=== PATIENT | female | born 2000 | race Caucasian/White ===

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

== ENCOUNTER 2024-12-30 06:06 | Observation (INO) | payer SELFPAY ==
[~2024-12-30] VITALS: Ht 167.6 cm; Wt 81.7 kg
[2024-12-30 07:15] LABS: BASOPHILS ABSOLUTE AUTO 0.04 K/mm3 (0.00-0.23); BASOPHILS PERCENT AUTO 0 % (0-2); EOSINOPHILS PERCENT AUTO 0 % (0-6); Hematocrit 44.9 % (33.0-51.0); Hemoglobin 15.7 g/dL (11.5-16.0); IMMATURE GRAN ABSOLUTE AUTO 0.05 K/mm3 (0.00-0.10); IMMATURE GRAN PERCENT AUTO 0 % (0-1); LYMPHOCYTES PERCENT AUTO 21 % (21-46); MONOCYTES ABSOLUTE AUTO 1.01 K/mm3 (0.16-1.47); MONOCYTES PERCENT AUTO 8 % (4-13); Mean Corpuscular HGB 30.3 pg (26.0-34.0); Mean Corpuscular Volume 87 fL (80-100); Mean Platelet Volume 9.3 fL (9.1-12.4); NEUTROPHILS ABSOLUTE AUTO 9.34 K/mm3 (1.96-9.15); NEUTROPHILS PERCENT AUTO 71 % (41-73); Platelet Count 387 K/mm3 (150-400); RDW Coefficient Variation 13.2 % (11.7-14.2); RDW Standard Deviation 41.4 fL (35.1-46.3); Red Blood Cell Count 5.19 M/mm3 (3.80-5.20); White Blood Cell Count 13.14 K/mm3 (4.00-11.30)
[2024-12-30 07:48] LABS: Ethanol (Alcohol), Blood, Med 4 mg/dL; Free Thyroxine 1.71 ng/dL (0.70-1.60); Salicylate <1.7 mg/dL (2.8-20.0)
[2024-12-30 07:53] LABS: Alanine Aminotransfer (ALT/SGP 22 U/L (12-78); Albumin, Blood 4.7 g/dL (3.4-5.0); Albumin/Globulin Ratio 1.4 (0.8-1.8); Alk Phos 82 U/L (50-136); Anion Gap 11 mmol/L (3-11); Aspartate Aminotrans (AST/SGOT 21 U/L (12-37); Bilirubin, Total 1.3 mg/dL (0.1-1.0); Blood Urea Nitrogen 11 mg/dL (8-24); Bun/Creatinine Ratio 15.9 (12.0-20.0); CO2, Blood 22 mmol/L (21-32); Calcium, Blood 9.2 mg/dL (8.5-10.1); Chloride, Blood 105 mmol/L (98-108); Creatinine, Blood 0.69 mg/dL (0.40-1.00); Globulin, Blood 3.4 g/dL (2.2-4.0); Glomerular Filtration Rate 125 (60-); Glucose, Blood 94 mg/dL (70-99); Potassium, Blood 3.3 mmol/L (3.5-5.5); Sodium, Blood 135 mmol/L (136-145); Total Protein, Blood 8.1 g/dL (6.4-8.2)
[2024-12-30 07:54] LABS: Acetaminophen, Random <2.0 ug/mL (10.0-30.0)
[2024-12-30] MEDS ORDERED: Potassium Chloride 20 MEQ TabCR PO ONE (09:40)
[2024-12-30] MEDS ORDERED: Magnesium Oxide 400 MG Tab PO ONE (09:40)
[2024-12-30 10:37] LABS: Source, Urine Clean Catch
[2024-12-30 10:59] LABS: Appearance, Urine Clear (Clear); Bilirubin, Urine Neg (Neg); Blood, Urine Neg (Neg); Color, Urine Yellow (P-Yellow); Glucose Qualitative, Urine Neg (Neg); Ketones, Urine 4+ (Neg); Leukocyte Esterase, Urine Neg (Neg); Nitrite, Urine Neg (Neg); Protein, Urine 2+ (Neg); Urobilinogen, Urine 1+ (Normal)
[2024-12-30 11:12] LABS: Bacteria Many /hpf; Squamous Epithelial Cells Many /hpf (Few)
[2024-12-30 11:13] LABS: Calcium Oxalate Crystals Few /hpf; Red Blood Cells, Urine 0-2 /hpf (0-2); White Blood Cells, Urine 0-2 /hpf (0-5)
[2024-12-30 11:14] LABS: U Amphetamine Screen Not Detected; U Barbituate Screen Not Detected; U Benzodiazapine Screen DETECTED; U Buprenorphine Screen Not Detected; U Cannabinoids Screen DETECTED; U Cocaine Screen Not Detected; U Methadone Screen Not Detected; U Methamphetamine Screen Not Detected; U Opiates Screen Not Detected; U Oxycodone Screen Not Detected; U Phencyclidine Screen Not Detected
[2024-12-30 16:00] VITALS: BP 165/88
== END 2024-12-30 16:42 | disposition other institution (70) ==
LOC: ER 06:06 → EOR 06:07
PROVIDERS: ADMIT Emergency Medicine
DX: F29 Unspecified psychosis not due to a substance or known physiological condition (principal); F22 Delusional disorders; E87.6 Hypokalemia; E80.6 Other disorders of bilirubin metabolism; Z81.8 Family history of other mental and behavioral disorders
CPT/HCPCS: 36415; 80053; 80320; 81001; 81025; 84439; 84443; 85025; 99285; A9270; G0378; G0480

== ENCOUNTER 2024-12-30 15:19 | Inpatient (IN) | payer BC ==
[~2024-12-30] VITALS: Ht 167.6 cm; Wt 96.0 kg
[2024-12-30] MEDS ORDERED: Ondansetron 4 MG SoluTab MM PRN (17:15)
[2024-12-30] MEDS ORDERED: Calcium Carbonate 500 MG Tab Chew PO PRN (17:15)
[2024-12-30] MEDS ORDERED: Acetaminophen 325 MG TABLET PO PRN (17:15)
[2024-12-30] MEDS ORDERED: Polyethylene Glycol 3350 17 gm PO PRN (17:15)
[2024-12-30] MEDS ORDERED: OLANZapine ODT 10 MG Tab MM PRN (17:15)
[2024-12-30] MEDS ORDERED: DiphenhydrAMINE HCl 50 MG/ML 1ML Vial IM PRN ×2 (17:15→17:25)
[2024-12-30] MEDS ORDERED: Melatonin 3 MG Tab PO PRN (17:15)
[2024-12-30] MEDS ORDERED: Ibuprofen 600 MG Tab PO PRN (17:15)
[2024-12-30] MEDS ORDERED: HydrOXYzine Pamoate 50 MG Cap PO PRN (17:15)
[2024-12-30] MEDS ORDERED: TraZODone HCl 50 MG Tab PO PRN (17:15)
[2024-12-30] MEDS ORDERED: Aluminum Hydroxide 320MG/5ML 473 ML PO PRN (17:15)
[2024-12-30 17:21] VITALS: BP 147/116
[2024-12-30] MEDS ORDERED: Haloperidol Lactate Inj. 5 MG/ML Injection IM PRN (17:25)
[2024-12-30] MEDS ORDERED: LORazepam 2 MG/ML 1ML Injection IM PRN (17:25)
[2024-12-30] MEDS ORDERED: LORazepam 1 MG Tab PO PRN (17:25)
[2024-12-30] MEDS ORDERED: Haloperidol 5 MG Tab PO PRN (17:25)
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
--- NOTE | 2024-12-30 18:48 | NUR ---
PT HAS NOSE RING IN PLACE ON HER RIGHT NARE FOR THE DAY SHIFT. PRESENT IN PLACE AT THIS TIME OF SHIFT CHANGE.
[2024-12-30 20:03] VITALS: BP 149/116
[2024-12-31] MEDS ORDERED: DiphenhydrAMINE HCl 50 MG Cap PO PRN ×2 (04:30→07:25)
--- NOTE | 2024-12-31 05:09 | NUR ---
SHIFT SUMMARY PT IN HALLWAY AT START OF SHIFT. NOSE RING TO RIGHT NARES IN PLACE AND INTACT. SHE HAS DISORGANIZED THOUGHTS, AND SEEMS TO HAVE DIFFICULTY MAKE DECISIONS. SHE DENIES ANY THOUGHTS OF SELF HARM BUT DOES NOT ANSWER WHEN ASKED IF SHE WAS HAVING ANY HALLUCINATIONS. SHE APPEARS TO RESPOND TO INTERANL STIMULI AND IS SLOW TO RESPOND TO QUESTIONS. SHE STATES HER MOOD IS "READING INTO THINGS, [facility] PT HAD EVENING SNACK. SHE STATED SHE HASN'T SLEPT AND WAS COMPLIANT WITH TAKING MELATONIN AND TRAZODONE. PT NOTED TO BE FIDGETY AND REPORTED FEELING ANXIOUS, MASS SCORE OF 4 AND WAS COMPLIANT WITH TAKING PRN ZYPREXA AROUND 2029. PT WENT TO HER ROOM AROUND 2044, WAS RESTING QUIETLY IN BED AND APPEARED TO FALL ASLEEP AROUND 0. AT APPROXIMATELY 0330, PT WAS AWAKE, STATES SHE WAS FEELING ANXIOUS, MASS SCORE OF 3. RECEIVED PRN VISTARIL. PT HAS BEEN UNABLE TO GO BACK TO SLEEP, HAD THIS RN REMOVE ALL WATER AND TOILETRIES FROM HER ROOM. PT PACING IN HALLWAY, ANXIOUS. SAT IN SENSORY ROOM FOR SHORT TIME. ATTEMPTED TO GIVE ORAL B52, BUT PT REFUSED. PT IS CURRENTLY IN HALLWAY TALKING WITH RN, TEARFUL AT TIMES TALKING ABOUT HER FEELINGS APPEARS TO BE DE-ESCALTING AT THIS TIME. WILL CONTINUE TO MONITOR Q15 MINUTES PER UNIT PROTOCOL/PT SAFETY.
[2024-12-31] MEDS ORDERED: Multivitamins 1 Tab PO SCH (09:00)
[2024-12-31] MEDS ORDERED: Ziprasidone HCL 20 MG Cap PO SCH (11:50)
[2024-12-31] MEDS ORDERED: LORazepam 1 MG Tab PO ONE (17:05)
--- NOTE | 2024-12-31 18:21 | NUR ---
SHIFT SUMMARY PT AxOx2 SELF AND PLACE WITH INTERMITTENT CONFUSION AND DELUSION OF REFERENCE. PT HAS BEEN MOSTLY COOPERATIVE WITH CARE WHEN SHE IS ABLE, BUT HAS REQUIRED FREQUENT REDIRECTION TO FOLLOW UNIT RULES, SCHEDULE AND BASIC MANNERS AROUND PEERS. PT WAS RESISTANT TO TAKE MEDICATIONS AND EAT MEALS AT TIMES, BUT SHE DID EVENTUALLY FOLLOW TREATMENT PLAN AFTER REPEATED REASSURANCE AND REDIRECTION. PT'S UNPREDICTABLE BEHAVIORS INCLUDED OCCASIONAL STOMPING IN HALLS, TANGENTIAL AND LOOSE ASSOCIATIVE SPEECH, LURKING BY UNIT EXITS, YANKING ON DOOR HANDLES, REPEATEDLY TELLING STAFF SHE WAS LEAVING, ARGUING WITH HER VISITOR (RANDALL) TO THE POINT THAT HE HAD TO END THE VISIT EARLY AND STANDING TOO CLOSELY TO STAFF/PEERS. PT ALSO DISPLAYED CLEAR THINKING ON AND OFF T/O THE DAY INCLUDING ABILITY TO ATTEND AND PARTICIPATE IN GROUP, ENGAGING IN SHORT APPROPRIATE CONVERSATIONS AND ENGAGING IN FREE CRAFTING/ART WITH PEERS. PT WAS STARTED ON GEODON 40MG BID THIS SHIFT, WHICH SHE TOOK WITHOUT DIFFICULTY. PT IS CURRENTLY SITTING IN GROUP ROOM, COLORING, APPEARS RELAXED AT THIS TIME. DENIES ANY NEEDS.
[2024-12-31 19:59] VITALS: BP 123/79
--- NOTE | 2024-12-31 22:34 | NUR ---
PT IN BED QT THE START OF SHIFT. WENT IN AND TALKED TO HER THE BEST I COULD. SHE DIDN'T VERBALIZE ANY CONCERNS, ONLY THING MENTIONED WAS :THE WATER. WHEN ASKING HER TO SIP THE WATER WITH HER MEDS. SHW WAS ABLE TO THAT. SHE THEN GOT OUT OF THE BED WITH HER EYES CLOSED AND STARTED TO WALK AND HAD TO CATCH HERSELF. ESCORTED TO THE RESTROOM INCASE SHE WANTED TO NO, SHE TURNED AWAY FROM IT AND WENT BACK TO BED . COVED HER UP WITH BLANKETS AND WILL CONTINUE TO MONITOR.
--- NOTE | 2025-01-01 04:20 | NUR ---
SHIFT SUMMARY: PT WAS ASLEEP AT THE BEGINNING OF SHIFT. ONLY GOTTON UP ONE TIME AND WAS SLEEPY AND NEEDED HELP BACK TO BED. GIVEN MEDS AND PT WENT BACK TO SLEEP. HAS SLEPT ALL NIGHT. WHEN TRYING TO INTERVIEWING HER WHEN ASSISTED BACK TO BED,THE ONLY THING THAT SHE SAID SOMETHING ABOUT WATERING DOW AND WAS TIRED. DOOR LEFT OPEN AND BATHROOM LIGHT ON TO HELP FOR SAFETY. PT HAS SLEPT THE WHOLE SHIFT. WILL CONTINUE TO MONITOR FOR SAFETY AND WELLNESS.
--- NOTE | 2025-01-01 09:00 | NUR ---
PT OBSERVED NAKED IN THE BATHROOM SHOWER PACING. HER SPEECH IS TANGENTAL. SHE DECLINED TO GET IN A SHOWER OR GET DRESSED. SHE DID NOT DISPLAY AGGRESIVE BEHAVIOR BUT COULD NOT ANSWER QUESTIONS APPROPRIATLY. SHE APPEARS TO HAVE SOME THOUGHT BLOCKING WITH SIGNICANT DELAY IN RESPONSE IF ANY. SHE DECLINE MORNING MEDS AND ORAL BENADRYL ADIVAN, HALODOL AFTER SEVERAL ATTEMPTS WITH ORAL MEDS INJECTABLE GIVEN. PT TOLERATED WELL. SHE REPORTS THAT GOD AND HER AUNT SHEA ARE TALKING TO HER.
--- NOTE | 2025-01-01 10:02 | NUR ---
PT AGREEABLE TO CLOTHES. SHE IS DRESSED AND IS IN THE SENSORY ROOM WITH A BOOK.
--- NOTE | 2025-01-01 13:13 | NUR ---
PT UP TO DINNING ROOM FOR SNACK. PT REFUSING TO LEAVE. SHE IS EMOLTIONALY LABILE. SHE REFUSED TO TALK OR INTERACT WITH STAFF. AFTER VERBAL COACHING SHE LEFT DINNING ROOM AT THAT TIME SHE WENT TO SENSORY ROOM AND BEGAN CRYING LOUDLY. SHE MENTIONS BEING A CHILD AND BEING EXPOSED TO INAPPROPRIATE ADULT SEXUAL ACTIVITY. SHE NAMED SEVERAL ADULTS BUT ALSO THOUGHT THIS RN WAS THERE. THIS RN USED THERAPUTIC LISTENING AND OFFERED A ORAL ZYPREXA, PT AGREED AND IS NOW SLEEPING
--- NOTE | 2025-01-01 14:29 | NUR ---
PT APPEARS TO BE SLEEPING IN THE SENSORY ROOM. SHE IS BEING OBSERVED AT LEAST Q 15 MINUTES PER UNIT PROTOCOL.
[2025-01-01] MEDS ORDERED: Ziprasidone HCL 20 MG Cap PO SCH (21:00)
--- NOTE | 2025-01-01 21:50 | NUR ---
Patient given IM B52 after refusing HS medication and having increasing anxiety, paranoia and mild agitation. unable to answer questions with more than a yes or no repeated several times. Eye contact is poor as patient just stares straight ahead when spoken to. Will monitor every 15 minutes for safety and comfort.
[2025-01-01] MEDS ORDERED: Ziprasidone Mesylate 20 MG / Vial IM PRN (23:50)
--- NOTE | 2025-01-02 00:48 | NUR ---
IM GEODON GIVEN AT 0020. PATIENT STILL QUIETLY PACING HALLS 30 MINUTES LATER.
--- NOTE | 2025-01-02 04:50 | NUR ---
PATIENT PACING HALLS AFTER WAKING FROM NAP IN THE SENSORY ROOM. UNABLE TO FOLLOW COMMANDS OR ANSWER SIMPLE QUESTIONS. gAZE STRAIGHT AHEAD OR TO THE SIDE, BUT NEVER TOWARDS THE PERSON ADDRESSING HER. OCCASIONAL ONE WORD ANSWERS FOR A BRIEF FEW MINUTES AROUND 1999, ALL SINGLE SYLLABLE (EX.NO NO NO) REFUSED HS GEODON, AND BEGAN TO GET AFITATED AFTER THIS RN TRIED TO GENTLY TALK HER INTO IT. (SEE NURSES NOTES) B52 GIVEN AT 2140 WITH LITTLE RESULT. PATIENT STILL AGITATED AND PARANOID. AT 0020, 20MG IM GEODON GIVEN PER NEW ORDER FROM DR SY. AT APPROXIMATELY 0130, PATIENT WHO REFUSED TO GO INTO HER ROOM FELL ASLEEP IN THE SENSORY ROOM. SLEEP HOURS SO FAR TONIGHT 3.5 HOURS. WILL CONTINUE EVERY 15 MINUTE MONITORING FOR SAFETY AND COMFORT.
[2025-01-02] MEDS ORDERED: Ziprasidone HCL 20 MG Cap PO SCH (09:00)
--- NOTE | 2025-01-02 09:26 | NUR ---
ASSUMED PT CARE @ 0700. PT IS AWAKE AND ALERT TO PERSON AND PLACE. SHE WAS ABLE TO SHOWER WITH ASSIST WITH DRYING AND GETTING DRESSED. SHE LET THIS RN BRUSH HER HAIR. SHE IS ABLE TO ANSWER SIMPLE QUESTIONS. THERE IS STILL DELAY. SHE DECLINED AM MEDS AFTER SEVERAL ATTEMPTS AT COACHING AND EDUCATION ABOUT MEDICATIONS AND MENTAL HEALTH DX IM SHEEBA GIVEN. PT TOLERATED WELL. PT ATE BREAKFAST IN THE DINNING ROOM AND IS NOW WATCHING TV WITH PEERS.
--- NOTE | 2025-01-02 11:13 | NUR ---
PT IN HALLWAY ATTEMPTING TO REMOVE TOP AND ATTEMPTING TO ENTER OTHER PATIENTS ROOM. PT ABLE TO BE REDIRECTED TEMPORARILY THEN BACK TO BEHAVIOR. THIS RN ATTEMPTED SEVERAL TIMES TO ENCOURAGE PT TO TAKE PRN ZYPREXA. PT DENIED. PT REFUSES ALL ORAL MEDICATION. SHE REFUSES EYE CONTACT AND TO SPEAK WHEN EDUCATING ON BENIFIT OF MEDICATIONS. PRN BENADRYL, ATIVAN, AND HALODOL GIVEN PER MASS SCORE OF 10. PT TOLERATED WELL. SHE IS NOW WALKING HALLWAY WITH STAFF. WILL CONTINUE POC
[2025-01-02] MEDS ORDERED: OLANZapine 10 MG Vial IM PRN (12:00)
--- NOTE | 2025-01-02 16:15 | NUR ---
SHIFT SUMMARY PT HAS REMAINED CALM AND DIRECTABLE AFTER IM MEDICATION. SPEECH IS STILL LIMITED BUT SHE IS COMPLETING SIMPLE SENTENCES AND ABLE TO ANSWER SIMPLE QUESTIONS. THERE IS STILL SIGNIFICANT DELAY, AT TIME SHE WILL NOT MAKE EYE CONTACT OR ANSWER QUESTIONS. SHE HAS BEEN ABLE COLOR FOR SHORT AMOUNTS OF TIME. SHE IS NOT ATTEMPTING TO REMOVE CLOTHES OR GO INTO PEERS ROOM. SHE HAD WHAT APPEARED TO BE A GOOD VISIT WITH BF AND BROTHER. SHEEBA BLOOM AND MARQUIS ORDERED. SHE IS UNABLE TO ANSWER QUESTIONS REGARDING SI, AVH. SHE HAS BEEN UP FOR MEALS. WILL CONTINUE POC.
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
[2025-01-02] MEDS ORDERED: OLANZapine ODT 10 MG Tab PO SCH (21:00)
--- NOTE | 2025-01-02 22:12 | NUR ---
pATIENT RECEIVED A b52 SHORTLY BEFORE SHIFT CHABGE AND HAS BEEN SLEEPING SINCE. wILL CONTINUE VERY CLOSELY MONITORING AT LEAST EVERY 15 MINUTES FOR SAFETY AND COMFORT
--- NOTE | 2025-01-03 04:05 | NUR ---
Patient has slept all night so far. Respirations even and unlabored. Sleep time thus far is nine hours. Will continue close monitoring at least every 15 minutes for comfort and safety.
--- NOTE | 2025-01-03 09:11 | NUR ---
IMPORTANT REFERRAL INFORMATION Early Assessment and Support [place] (EASA) referral sent to Jena Carter LCSW at [facility] via secure email and fax. EASA program serves young people ages 18-26 who have had their first psychotic break
[2025-01-03] MEDS ORDERED: RisperiDONE 1 MG Tab PO ONE (10:00)
[2025-01-03 10:49] VITALS: BP 148/105
[2025-01-03] MEDS ORDERED: LORazepam 2 MG/ML 1ML Injection IM PRN (13:00)
[2025-01-03] MEDS ORDERED: LORazepam 2 MG Tab PO PRN (13:00)
--- NOTE | 2025-01-03 17:15 | NUR ---
SHIFT SUMMARY PT ALERT AND ORIENTED TO SELF, UNIT, SURROUNDINGS. PT DENIES SI, HI, AND AVTH (APPEARS TO BE RESPONDING TO INTERNAL STIMULI). T/O DAY PT DISPLAYED PARANOID DELUSIONS AND TANGENTIAL THINKING. BELIEVES THAT FEMALE STAFF IS "AUNT SHEA" OR "SAADIA" AND STATES THAT "THEY NEED TO LEAVE". PT ALSO ATTEMPTED TO GO INTO 601 STATING "SHERRI IS IN THERE". PT AT THIS TIME IS DIFFICULT TO REDIRECT. PT ALSO RELUCTANT TO TAKE PO MEDS, BUT GIVING EDUCATION ON MEDICATIONS AND THERAPEUTIC COMMUNICATIONS APPEARS EFFECTIVE AT GETTING PATIENT TO TAKE PO MEDS. DID NOT PARTICIPATE IN [place] TODAY. ATE MINIMALLY TODAY (SEE PROCESS INTERVENTION). PT VISITED W/ BOYFRIEND SHERRI TODAY.
[2025-01-03 19:39] VITALS: BP 141/102
[2025-01-03] MEDS ORDERED: RisperiDONE 1 MG Tab PO SCH (21:00)
--- NOTE | 2025-01-03 21:40 | NUR ---
Patient refused PO ativan at 1939 as well as 2100 Risperdol. She pushed staff aside in the dining room at snack time, and pulled out a lot of food for the patients (twice). Attempt made to give IM Ativan not safe, so called security for stand by so shot could be given. Patient then tolerated well and fell asleep approximately 45 minutes to an hour later. will continue close monitoring every 15 minutes for safety and comfort.
--- NOTE | 2025-01-03 23:13 | NUR ---
Patient continues to sleep (restlessly). Breathing regular and unlabored. will continue close monitoring
--- NOTE | 2025-01-04 04:06 | NUR ---
Patient began the night sitting in the day room watching a movie with her peers. She was very guarded with any staff that came into the room, expecially when this RN attempted to give her an oral Ativan. NO NO NO NO was all she would say, and then turn back to the movie. At snack time, she pushed staff away from the fridge and started passing out snacks to the patients. Security was called when she refused her Risperadol and still wouldn't accept the oral ativan. With gentle assistance and the presence of security, she accepted the injection around 2129. Patient to this point has been sleeping in her bed. She was very paranoid of one of the security guards telling him to get out, that he was already and he needed to quit coming back. She inferred that we were trying to kill her with the meds we were giving her, and had done so several times already. Will continue close observation every 15 minutes or more frequently for comfort and patient safety
[2025-01-04 08:28] VITALS: BP 134/91
--- NOTE | 2025-01-04 17:37 | NUR ---
SHIFT SUMMARY PT AxOx2-3 WITH INTERMITTENT DELUSIONAL AND CONFUSED THINKING. PT DOES NOT PARTICIPATE IN NURSING ASSESSMENT. FOR EXAMPLE, SHE WILL NOT ANSWER SI/HI QUESTIONS. WHEN ASKED ABOUT HER MOOD AND WHETHER SHE HAD ANY THOUGHTS OF SELF HARM, PT REPLIES "DON'T TALK TO ME. YOU NEED TO LEAVE. YOU KNOW WHAT YOU DID." PT'S BEHAVIOR WAXES AND WANES FROM IRRITABLE AND RESTLESS TO CALM AND COOPERATIVE. SHE HAS BEEN ATTENDING MOST [facility] GROUP THERAPIES, BUT SHE HAS STRUGGLED WITH MED COMPLIANCE. PT HAS BEEN REQUIRING MUCH REASSURANCE BEFORE BEING WILLING TO TAKE ANY MEDS THIS SHIFT. SHE HAS SPENT NO LESS THAN 1 HOUR NEGOTIATING WHETHER SHE SHOULD TAKE HER MEDS WITH NURSING STAFF. SHE IS ACCUSATORY TOWARDS CERTAIN STAFF, STATING THEY ARE "FIRED AND NEED TO LEAVE NOW" OR STATING THEY "MOLESTED HER AT THE [facility]," OR CALLING STAFF "THE DEVIL, HER SOULMATE, HER AUNT SHEA, AND/OR SHERRI (PT'S BOYFRIEND)." PT HAS ALSO DISPLAYED PERSISTENT DISRUPTIVE BEHAVIORS SUCH LINGERING IN FRONT OF DOORS, BLOCKING THEM FROM STAFF USE AND FIDGETING LOUDLY WITH DOOR HANDLES. SHE ALSO WANDERS INTO OTHER PATIENT ROOMS SOMETIMES, BUT IS USUALLY EASILY REDIRECTABLE. PT LATER APOLOGIZED FOR ACCUSING THIS RN, BUT DID NOT SPECIFY MORE CONTEXT. PSYCHIATRIST PLACED INVOLUNTARY HOLD FOR THIS PATIENT TODAY. CIVIL RIGHTS READ TO PATIENT AND DOCUMENT COPIES IN FILED IN CHART AND PCI BOX. PT HAD VISIT WITH SHERRI (HER BOYFRIEND) THIS AFTERNOON. SHE APPEARED NOTABLY MORE CALM AFTER VISIT, BUT DECLINED DINNER BECAUSE SHE "WASN'T HUNGRY." PT IS CURRENTLY STANDING IN THE HALLWAY PLAYING A TOSS BALL GAME WITH PEERS. SHE DENIES ANY NEEDS AT THIS TIME. FASTING LABS ORDERED FOR TOMORROW AM.
[2025-01-04] MEDS ORDERED: RisperiDONE 1 MG Tab PO SCH (21:00)
[2025-01-04 22:52] VITALS: BP 148/111
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
[2025-01-05 07:59] LABS: CHOL/HDL RATIO 1.8; Cholesterol 101 mg/dL (50-200); HDL Cholesterol 55 mg/dL (>39); LDL/HDL RATIO 0.4; Low Density Lipoprotein Chol 23 mg/dL (0-110); Triglycerides 117 mg/dL (30-140); Very Low Density Lipoprot Chol 23 mg/dL (6-28)
[2025-01-05 08:09] VITALS: BP 139/84
[2025-01-05 14:32] VITALS: BP 138/98
--- NOTE | 2025-01-05 17:08 | NUR ---
SHIFT SUMMARY: PT ALERT AND COOPERATIVE WITH CARE. THIS AM PT INITALLY REFUSED MEDICATIONS. STATED "YOU ARE NOT ALIVE". AFTER TALKING WITH STAFF PT AGREED AND TOOK MEDICATIONS. PT TALKED WITH ANABELL FROM [facility]. PT NOTABLE CLEARING THROUGH OUT THE DAY. STATED THAT SHE "FEELS MORE LIKE MYSELF". HAD A VISIT WITH HER S/O WHICH APPEARED TO GO WELL. PT HAS BEEN ACTIVE IN THE [facility], ATTENDED GROUPS AND SPENT TIME IN THE DAY ROOM WATCHING TV WITH PEERS.
[2025-01-05 19:56] VITALS: BP 136/100
--- NOTE | 2025-01-06 04:17 | NUR ---
SHIFT SUMMARY PATIENT RESTING IN ROOM. DENIES SI, HI WHEN ASKED ABOUT HALLUCINATIONS PATIENT VERBALIZED "I DON'T THINK SO". PATIENT CONTINUES TO HAVE DIFFICULTY TRUSTING OTHERS. REQUIRING GENTLE EXPLANATION AND BEING SHOWN CLOSED MEDICATION PACKETS AND OPENING THEM WITHIN SITE TO AGREE TO TAKING PO MEDICATIONS. WITH ENCOURAGEMENT PATIENT WENT TO SNACK, RETURNING TO ROOM AFTER EATING A COOKIE. PATIENT APPEARS TO BE SLEEPING WELL T/O NIGHT WITH RESP EVEN AND UNLABORED CONTINUE TO MONITOR Q15MIN
[2025-01-06 08:11] VITALS: BP 135/99
--- NOTE | 2025-01-06 12:46 | NUR ---
IMPORTANT APPOINTMENT INFORMATION Jena Carter LCSW from [facility] to meet with and assess patient at [facility] on 01/11 at 1300
--- NOTE | 2025-01-06 17:06 | NUR ---
SHIFT SUMMARY NO ACUTE EVENTS TODAY. PT DENIED SI, HI, AND AVTH; WHEN ASKED ABOUT AUDITORY HALLUCINATIONS PT STATED, "NO, I'VE NEVER HAD ANY.". PT CONTINUES TO HAVE PARANOID DELUSIONS, BUT APPEAR LESS SEVERE THAN PREVIOUS SHIFT THAT THIS RN TOOK CARE OF PT. PT ALSO REDIRECTABLE THAN PREVIOUS SHIFT FOR THIS RN. PT PARTICIPATING IN GROUPS AND SOCIALIZING W/ PEERS. TOOK MEDICATIONS W/ NO DIFFICULTY THIS SHIFT. PT DID MENTION AUNT SHEA AND SHERRI AGAIN TODAY, BUT W/ LESS FREQUENCY.
[2025-01-06 20:18] VITALS: BP 125/76
--- NOTE | 2025-01-07 04:06 | NUR ---
PATIENT WAS IN BED RESTING QUIETLY AT THE BEGINNING OF THE SHIFT. SHE STATED THAT SHE WAS "TOO SLEEPY" TO WANT A SNACK AT 2000. RN AND MHA WENT IN HER ROOM TOGETHER, FOR VITAL SIGNS AND EVENING MEDICATIONS. PATIENT STATED THAT SHE IS "SLEEPY". SHE DENIED SI/HI OR A/V HALLUCINATIONS. SHE WAS COMPLIANT WITH EVENING MEDICATIONS.SHE AWOKE ONCE IN THE MIDDLE OF THE SHIFT, AND WHEN ASKED IF SHE NEEDED ANYTHING, STATED, "NO" AND WENT BACK TO RESTING QUIETLY. SHE STATED THAT SHE "MOVED TO THE WINDOW BED" BECAUSE "I LIKE TO LOOK OUT THE WINDOW". SHE USED HEADPHONES FOR MUSIC WHEN AWAKE. SHE SPENT THE MAJORITY OF THE SHIFT RESTING QUIETLY IN BED WITH EYES CLOSED AND RESPIRATIONS CONFIRMED. SHE HAS MARKED DIFFERENCES IN DEMEANOR, SHE IS ABLE TO MAKE EYE CONTACT APPROPRIATELY WITHOUT STARING, ANSWER QUESTIONS IN A LINEAR MANNER AND MAKE NEEDS KNOWN. CONTINUING TO MONITOR FOR SAFETY WITH Q15 MINUTE CHECKS.
[2025-01-07 08:08] VITALS: BP 120/98
--- NOTE | 2025-01-07 16:58 | NUR ---
SHIFT SUMMARY PT DENIES SI, HI, AND AVTH; STATED "I'VE NEVER HAD THEM" AT THE BEGINNING OF THIS SHIFT. AT TIME OF THIS NOTE PT CAME UP TO NURSING DESK AND STATED "THE VOICES ARE GONE". PT LESS REDIRECTABLE AT START OF SHIFT, BUT MORE COOPERATIVE W/ CARE AT TIME OF THIS NOTE. PT CONTINUES TO BE HESITANT WHEN TAKING MEDS, BUT DOES NOT DECLINE. PT ALSO CONTINUES TO MAKE COMMENTS ABOUT AUNT SHEA, SAADIA, AND SHERRI; AND HAS STARTED TO MAKE COMMENTS ABOUT "OWNING THIS PLACE.". NO OTHER ACUTE EVENTS AT TIME OF THIS NOTE.
--- NOTE | 2025-01-07 17:07 | NUR ---
UPDATE PT UP TO DESK AND STATING "I THINK THE GOD VOICES ARE AUNGina SHEA AND SHERRI.". CONTINUES TO SAY THEY HAVE STOPPED AT THIS TIME.
[2025-01-07 19:08] VITALS: BP 127/89
--- NOTE | 2025-01-08 04:18 | NUR ---
SHIFT SUMMARY: PATIENT WAS IN HER ROOM LYING QUIETLY IN BED AT THE BEGINNING OF THE EVENING SHIFT. SHE DECLINED OFFER OF SNACK AT 1999. SHE DENIED THOUGHTS OF SUICIDAL IDEATION OR SELF HARMING. SHE STATED "I SAW MY BOYFRIEND, SO IT WAS A GREAT DAY". SHE AWAKENED FOR VITAL SIGNS AND EVENING MEDICATIONS AND SPOKE IN A LINEAR MANNER TO MHA AND RN. SHE WAS ABLE TO ANSWER QUESTIONS APPROPRIATELY. SHE WAS ABLE TO MAKE HER NEEDS KNOWN. SHE DENIED A/V/T HALLUCINATIONS. SHE WAS COMPLIANT WITH EVENING MEDICATIONS. SHE THEN WAS NOTED TO BE LYING IN BED QUIETLY WITH EYES CLOSED AND RESPIRATIONS CONFIRMED FOR THE REMAINDER OF THE SHIFT. CONTINUING TO MONITOR FOR SAFETY WITH Q15 MINUTE CHECKS.
[2025-01-08 08:09] VITALS: BP 132/109
--- NOTE | 2025-01-08 11:24 | NUR ---
PT PACING HALLS AND APPEARS ANXIOUS. PT SAYING SHE'S AND OTHER PEOPLE ARE . PT ALSO SAYING THAT "MARIA E, RANDALL, AND SAADIA NEED TO BE ARRESTED". THIS RN OFFERED PT SOME ATIVAN TO HELP WITH HER ANXIETY. PT DECLINED AND SAID THAT ATIVAN MAKES HER WORSE. PT UNDER THE IMPRESSION THAT SHE HAD ALREADY RECEIVED ATIVAN. RN CORRECTED PT AND LET HER KNOW THAT SHE HAD NOT RECEIVED ATIVAN TODAY, AND THAT IT WILL POSSIBLY HELP HER ANXIETY. PT DENIED ATIVAN AGAIN. WILL CONTINUE TO MONITOR AND REDIRECT PT.
[2025-01-08] MEDS ORDERED: LORazepam 1 MG Tab PO PRN (11:25)
--- NOTE | 2025-01-08 16:27 | NUR ---
SHIFT SUMMARY PT A/O X3; SHE KNOWS WHERE SHE IS AND THE DATE BUT SHE BELIEVES THAT SHE IS OTHER PEOPLE OR STAFF ARE OTHER PEOPLE THAT SHE KNOWS. FOR EXAMPLE, SHE WILL BELIEVE THAT LUBA ROSE IS HER AND THAT MORENITA CRISTOBAL IS SHERRI. THIS CAUSED THE PT TO BECOME DISTRESSED EARLIER IN THE SHIFT AND SHE DENIED THE NEED FOR PRN MEDICATION. SHE PACED THE HALLS AND RAISED HER VOICE BUT WAS EVENTUALLY ABLE TO BE REDIRECTED. PT TO START ON CLOZARIL TONIGHT. SHE VISITED WITH HER BOYFRIEND, SHERRI, THIS SHIFT AND REPORTED THAT THE VISIT WENT WELL. SHE DENIES SI, HI, OR HALLUCINATIONS. SHE DENIES HALLUCINATIONS BUT APPEARS TO BE RESPONDING TO INTERNAL STIMULI AND PARANOID DELUSIONS. SHE CONTINUES TO BE MONITORED VIA Q15 ROUNDING FOR SAFETY AND WELLNESS.
[2025-01-08] MEDS ORDERED: CLOZAPINE 25 MG PO SCH (21:00)
[2025-01-08] MEDS ORDERED: RisperiDONE 1 MG Tab PO SCH (21:00)
[2025-01-08 21:37] VITALS: BP 155/105
--- NOTE | 2025-01-09 04:18 | NUR ---
SHIFT SUMMARY: PATIENT WAS AWAKE IN HER ROOM AT THE BEGINNING OF THE SHIFT. SHE CAME OUT AND SPENT TIME IN THE DAY ROOM WITH STAFF AND SELECT PEER. SHE PARTICIPATED IN SNACK TIME AND WRAP UP GROUP. SHE WAS COMPLIANT WITH EVENING MEDICATIONS. SHE DENIED THOUGHTS OF SUICIDAL IDEATION OR SELF HARM. SHE STATED THAT SHE HAD A "GOOD VISIT WITH MY BOYFRIEND AND HE'S COMING TOMORROW". SHE HAD SOME MOMENTS WHERE IT SEEMED THOUGH SHE WAS FALLING BACK INTO DELUSIONARY THINKING, BUT SHE REMAINED PLEASANT AND APPROPRIATE. SHE STARED A LITTLE MORE THAN YESTERDAY AND WAS SLOWER TO RESPOND. SHE STATED, "SOMETIMES I DON'T KNOW IF I AM RADHA OR SHERRI". SHE WENT TO BED SHORTLY AFTER SNACK TIME AND WAS NOTED TO BE RESTING QUIETLY WITH EYES CLOSED AND RESPIRATIONS CONFIRMED. CONTINUING TO MONITOR FOR SAFETY WITH Q15 MINUTE CHECKS.
[2025-01-09 10:16] VITALS: BP 140/90
[2025-01-09 12:59] LABS: BASOPHILS ABSOLUTE AUTO 0.03 K/mm3 (0.00-0.23); BASOPHILS PERCENT AUTO 0 % (0-2); EOSINOPHILS ABSOLUTE AUTO 0.01 K/mm3 (0.00-0.68); EOSINOPHILS PERCENT AUTO 0 % (0-6); Hematocrit 43.4 % (33.0-51.0); Hemoglobin 14.6 g/dL (11.5-16.0); IMMATURE GRAN ABSOLUTE AUTO 0.02 K/mm3 (0.00-0.10); IMMATURE GRAN PERCENT AUTO 0 % (0-1); LYMPHOCYTES ABSOLUTE AUTO 1.92 K/mm3 (0.84-5.20); LYMPHOCYTES PERCENT AUTO 18 % (21-46); MONOCYTES ABSOLUTE AUTO 0.58 K/mm3 (0.16-1.47); MONOCYTES PERCENT AUTO 5 % (4-13); Mean Corpuscular HGB 29.9 pg (26.0-34.0); Mean Corpuscular HGB Conc 33.6 g/dL (31.5-36.5); Mean Corpuscular Volume 89 fL (80-100); Mean Platelet Volume 9.8 fL (9.1-12.4); NEUTROPHILS ABSOLUTE AUTO 8.11 K/mm3 (1.96-9.15); NEUTROPHILS PERCENT AUTO 76 % (41-73); Platelet Count 331 K/mm3 (150-400); RDW Coefficient Variation 12.9 % (11.7-14.2); RDW Standard Deviation 42.1 fL (35.1-46.3); Red Blood Cell Count 4.89 M/mm3 (3.80-5.20); White Blood Cell Count 10.67 K/mm3 (4.00-11.30)
--- NOTE | 2025-01-09 17:26 | NUR ---
SHIFT SUMMARY PT ALERT BUT ORIENTATION VARIES. THIS MORNING PT WAS APOLOGETIC OF PREVIOUS BEHAVIOR AND SEEMED MUCH MORE LOGICAL. SHE DENIES SI AND HI. PT ADMITTED TO HALLUCINATIONS BUT UNABLE TO VERBALIZE WHAT SHE SEES/HEARS. IN THE AFTERNOON THE PT'S THOUGHTS BECAME MORE DISORGANIZED AND MORE DELUSIONAL. PT BELIEVES THAT SHE HAS BEEN IN THE [place] A YEAR DESPITE SEEING THE DATE OF ADMISSION AND TODAY'S DATE. PT ALSO BECAME MORE DISTRAUGHT AND BELIEVES THAT STAFF ARE "JOSET SAADIA VALDIVIA, AND RANDALL AT THE [facility]." PT REQUIRES FREQUENT REDIRECTION AND UNFORTUNATELY WAS NOT ABLE TO BE RE-ORIENTED TO DATE. PT VISITING WITH BOYFRIEND AT TIME OF THIS NOTE. SHE IS MONITORED FOR SAFETY AND WELLNESS.
[2025-01-09 20:37] VITALS: BP 131/93
--- NOTE | 2025-01-10 04:23 | NUR ---
SHIFT SUMMARY PATIENT IN ROOM, REFUSING SNACK TONIGHT. VERBALIZED "I FEEL MORE LIKE MYSELF" DENIES SI HI OR AVH. VERBALIZED THAT EARLIER IN THE EVENING SHE DID HAVE AUDITORY HALLUCINATIONS. PATIENT VERBALIZED AGREEMENT TO COME GET HELP IF SHE STARTS TO HAVE THOSE SAME FEELINGS BEFORE THEY ESCALATE OUT OF CONTROL. PATIENT COOPERATIVE WITH MEDICATIONS. APPEARS TO BE SLEEPING WELL T/O NIGHT WITH RESP EVEN AND UNLABORED. CONTINUE TO MONITOR Q15MIN
[2025-01-10 08:09] VITALS: BP 132/96
[2025-01-10] MEDS ORDERED: LORazepam 1 MG Tab PO PRN (08:50)
[2025-01-10] MEDS ORDERED: RisperiDONE 1 MG Tab PO SCH (09:00)
--- NOTE | 2025-01-10 17:33 | NUR ---
SHIFT SUMMARY: PT ALERT, ORIENTED AND COOPERATIVE WITH CARE. DENIES SI, HI AND AVH. PT DISCUSSED LOOKING FORWARD TO GOING HOME SOON. PT'S SISTER AND BROTHER CAME TO VISIT AND THE VISIT APPEARED TO GO WELL. PT STATES THAT SHE IS FEELING LIKE HERSELF AGAIN. PT ATTENDED GROUPS AND WAS ACTIVE IN THE [place].
[2025-01-10 20:37] VITALS: BP 151/112
[2025-01-10] MEDS ORDERED: CLOZAPINE 25 MG PO SCH (21:00)
--- NOTE | 2025-01-11 05:40 | NUR ---
BIN CLEANER SUMMARY Patient is alert and oriented times four. She is active in the milieu with her peers participating in group puzzle and enjoying snacks. No periods of psychosis noted throughout the evening. Patient denied SI,HI and AVTH at the time of evening assessment, and did not appear to be responding to internal stimuli. Will continue close observation every 15 miniutes for comfort and safety. Sleep hours thus far have been nine hours.
[2025-01-11 07:25] VITALS: BP 137/89
--- NOTE | 2025-01-11 11:28 | NUR ---
ASSUMED PT CARE @0700. PT AA&OX4. SHE IS PLEASANT AND COOPERATIVE WITH CARE. VS STABLE. SPEECH AND EYE CONTACT APPROPRIATE. PT STATES SHE IS DOING BETTER BUT REPORTING "PINS AND NEEDLES" FEELING. 1 MG ATIVAN GIVEN FOR AKATHISIA. PT DENIES SI AVH. PT IS MEDICATION COMPLIANT. SHE IS ABLE TO APPROPRIATELY A QUESTIONS. SHE APPEARS TO HAVE MORE INSIGHT ABOUT DX AND IS ASKING APPROPRIATE QUESTIONS. SHE REPORTS GOOD SLEEP. SHE HAS BEEN UP FOR BREAKFAST AND GROUP. WILL CONTINUE POC.
--- NOTE | 2025-01-11 13:54 | NUR ---
IMPORTANT APPOINTMENT INFORMATION Jena Carter LCSW from [facility] program at [facility] to meet with patient on January at 1015. Patient to be enrolled in [facility] services at this time
--- NOTE | 2025-01-11 18:03 | NUR ---
SHIFT SUMMARY PT HAS BEEN UP FOR GROUPS, MEALS, AND SHOWER. SHE IS INTERACTING WELL WITH JESSICA. SHE STATES THAT ATIVAN WAS EFFECTIVE FOR AKATHISIA. SHE HAD WHAT APPEARED TO BE A PLEASANT VISIT WITH HER AUNT. SHE IS COMPLIANT WITH MEDICATIONS. SHE DENIES SI, AVH. SHE DENIES CURRENT NEEDS. WILL CONTINUE TO POC.
[2025-01-11] MEDS ORDERED: RisperiDONE 1 MG Tab PO SCH (21:00)
--- NOTE | 2025-01-12 04:20 | NUR ---
SHIFT SUMMARY: PATIENT WAS AWAKE IN THE DAY ROOM, WATCHING A MOVIE, AT THE BEGINNING OF THE SHIFT. SHE WAS PLEASANT AND COOPERATIVE WITH CARES. SHE PARTICIPATED IN SNACK AND WRAP UP GROUP AT 1999. SHE WAS COMPLIANT WITH EVENING MEDICATION ADMINISTRATION. AFTER SNACK, SHE WENT TO HER ROOM AND WAS IN BED RESTING WITH EYES CLOSED AND RESPIRATIONS CONFIRMED FOR THE REMAINDER OF THE SHIFT. SHE DENIED THOUGHTS OF SUICIDAL IDEATION OR SELF HARMING THIS SHIFT. CONTINUING TO MONITOR FOR SAFETY WITH Q15 MINUTE CHECKS.
[2025-01-12 05:18] VITALS: BP 138/102
[2025-01-12 08:27] VITALS: BP 150/94
[2025-01-12] MEDS ORDERED: LORazepam 1 MG Tab PO PRN (08:50)
[2025-01-12] MEDS ORDERED: RisperiDONE 1 MG Tab PO SCH ×2 (09:00)
--- NOTE | 2025-01-12 16:45 | NUR ---
SHIFT ANIKET ASSUMED PT CARE @0700. PT AA&OX4. SHE IS PLEASANT AND COOPERATIVE WITH CARE. SHE IS COMPLIANT WITH MEDICATIONS. PT DENIES MEDICATION SIDE EFFECTS TODAY. DR. THORNE DC'D ATIVAN. SPEECH IS LINEAR. SHE IS ABLE TO ANSWER AND ASK QUESTIONS APPROPRIATELY. SHE IS GOAL ORIENTATED. PT EDUCATED ON MEDICATIONS, SHE IS OPEN AND RECEPTIVE. SHE DENIES SI, AVH. PT UP TO GROUPS AND MEALS. SHE IS APPROPRIATE WITH PEERS AND ACTIVE ON THE MILIUE. SHE DENIES ANY CURRENT NEEDS. WILL CONTINUE POC
[2025-01-12 19:49] VITALS: BP 137/97
[2025-01-12] MEDS ORDERED: CloZAPine 100 MG Tab PO SCH (21:00)
--- NOTE | 2025-01-13 04:16 | NUR ---
SHIFT SUMMARY: PATIENT WAS IN THE DAY ROOM AT THE BEGINNING OF THE SHIFT, WATCHING A MOVIE WITH STAFF AND PEERS. SHE WAS PLEASANT AND COOPERATIVE WITH CARES. SHE WAS ABLE TO ANSWER QUESTIONS IN A CALM AND LINEAR MANNER. SHE DENIED THOUGHTS OF SUICIDAL IDEATION OR SELF HARMING THIS SHIFT. SHE STATED THAT SHE HAD "A GOOD DAY" AND "I'M BEING DISCHARGED ON FRIDAY". SHE PARTICIPATED IN SNACK AND WRAP UP GROUP AT 1999 IN THE DINING AREA. SHE WAS COMPLIANT WITH EVENING MEDICATIONS. SHE HAD NO ISSUES OR CONCERNS NOTED THIS SHIFT. SHE WENT TO BED SHORTLY AFTER SNACK AND WRAP UP GROUP, AND WAS NOTED TO BE IN BED RESTING QUIETLY WITH EYES CLOSED AND RESPIRATIONS CONFIRMED. CONTINUING TO MONITOR FOR SAFETY WITH Q15 MINUTE CHECKS.
[2025-01-13 08:06] VITALS: BP 138/84
[2025-01-13] MEDS ORDERED: RisperiDONE 1 MG Tab PO SCH (09:00)
--- NOTE | 2025-01-13 10:43 | NUR ---
SHIFT ASSESSMENT: PT DENIED SI, HI AND AVH. SHE ENDORSED ANXIETY, "JUST A LITTLE...WAS ANXIOUS THAT I WOULD NOT WAKE UP IN TIME FOR MY MEETING WITH THE COUNCELOR." HER AFFECT WAS EUTHYMIC AND HER MOOD, "I'M FEELING POSITIVE ABOUT EVERYTHING." PT ATTENDS GROUPS, SHE DID EXPRESS A FEELING OF BEING UNSAFE WITH THE MALE POPULATION IN THE GROUP AND STAYED CLOSE TO THE NURSES STATION FOR A WHILE. PT IS MEETING WITH AN [facility] ENERGY TRADING ANALYST AND OUR [facility] ENERGY TRADING ANALYST AT THIS TIME.
[2025-01-13] MEDS ORDERED: LORazepam 0.5 MG Tab PO ONE (15:00)
--- NOTE | 2025-01-13 15:18 | NUR ---
PT REPORTED BEING ANXIOUS BUT THEN DECLINED THAT ATIVAN 0.5MG THAT WAS ORDERED, "I'M OK WITHOUT IT." SHE SPENT SOME TIME IN THE SENSORY ROOM USING GROUNDING TECHNIQUES AND FOUND IT HELPFUL IN REDUCING SYMPTOMS.
[2025-01-13 19:13] VITALS: BP 161/103
[2025-01-13] MEDS ORDERED: Atropine Sulfate 1% Opth Soln 2ML BTL MM PRN (19:15)
[2025-01-13] MEDS ORDERED: CloZAPine 100 MG Tab PO SCH (21:00)
--- NOTE | 2025-01-14 04:09 | NUR ---
SHIFT SUMMARY: PATIENT WAS IN THE DAY ROOM AT THE BEGINNING OF THE SHIFT, WATCHING A MOVIE WITH STAFF AND PEERS. SHE WAS FRIENDLY AND OPEN IN HER COMMUNICATION. SHE SEEMED A LITTLE OFF FROM YESTERDAY, HAVING BRIEF MOMENTS OF SLIGHT PARANOIA, AND SOME PEOPLE SHE SPOKE OF THAT SHE DIDN'T TRUST. SHE WAS CONCERNED ABOUT HER NEW ORDER FOR CLOZARIL, BUT STATED, "I NEED TO TAKE IT. I'M GOING HOME SOON, I NEED TO TAKE THIS TO BE HEALTHY." HER PEERS ENCOURAGED HER, AND SHE WAS COMPLIANT WITH EVENING MEDICATION ADMINISTRATION. SHE DENIED THOUGHTS OF SELF HARMING OR SUICIDAL IDEATION. SHE PARTICIPATED IN SNACK AND WRAP UP GROUP AT 2000 IN THE DINING AREA. AFTER SNACK, SHE WENT TO HER ROOM, WHERE SHE WENT TO BED AND WAS NOTED TO BE RESTING QUIETLY WITH EYES CLOSED AND RESPIRATIONS CONFIRMED FOR THE REMAINDER OF THE SHIFT. CONTINUING TO MONITOR FOR SAFETY WITH Q15 MINUTE CHECKS.
[2025-01-14 07:07] LABS: BASOPHILS ABSOLUTE AUTO 0.04 K/mm3 (0.00-0.23); BASOPHILS PERCENT AUTO 0 % (0-2); EOSINOPHILS ABSOLUTE AUTO 0.09 K/mm3 (0.00-0.68); EOSINOPHILS PERCENT AUTO 1 % (0-6); Hematocrit 45.2 % (33.0-51.0); Hemoglobin 15.3 g/dL (11.5-16.0); IMMATURE GRAN ABSOLUTE AUTO 0.02 K/mm3 (0.00-0.10); IMMATURE GRAN PERCENT AUTO 0 % (0-1); LYMPHOCYTES ABSOLUTE AUTO 3.08 K/mm3 (0.84-5.20); LYMPHOCYTES PERCENT AUTO 29 % (21-46); MONOCYTES ABSOLUTE AUTO 0.67 K/mm3 (0.16-1.47); MONOCYTES PERCENT AUTO 6 % (4-13); Mean Corpuscular HGB 30.4 pg (26.0-34.0); Mean Corpuscular HGB Conc 33.8 g/dL (31.5-36.5); Mean Corpuscular Volume 90 fL (80-100); Mean Platelet Volume 9.7 fL (9.1-12.4); NEUTROPHILS ABSOLUTE AUTO 6.63 K/mm3 (1.96-9.15); NEUTROPHILS PERCENT AUTO 63 % (41-73); Platelet Count 335 K/mm3 (150-400); RDW Coefficient Variation 13.2 % (11.7-14.2); RDW Standard Deviation 43.4 fL (35.1-46.3); Red Blood Cell Count 5.04 M/mm3 (3.80-5.20); White Blood Cell Count 10.53 K/mm3 (4.00-11.30)
[2025-01-14 07:49] VITALS: BP 154/110
--- NOTE | 2025-01-14 07:53 | NUR ---
IMPORTANT APPOINTMENT INFORMATION Patient is scheduled to meet with Jena Garcia LCSW from [facility] at [facility] on Saturday, January 18, 2025 at 1300 // [address] [place], [place] [address] // [phone] SW entered appointment information is patient's discharge packet, copy placed in patient's hard chart, and information provided to the patient
[2025-01-14 08:40] VITALS: BP 150/96
[2025-01-14] MEDS ORDERED: LORazepam 0.5 MG Tab PO ONE (14:30)
[2025-01-14] MEDS ORDERED: RisperiDONE 1 MG Tab PO ONE (14:45)
--- NOTE | 2025-01-14 17:36 | NUR ---
SHIFT SUMMARY: PT PRESENT ON THE UNIT THROUGHOUT SHIFT. PT NOTED TO HAVE INCREASED ANXIETY AND PARANOID THOUGHTS THAT PROGRESSIVELY WORSENED OVER THE SHIFT. SHE TALKED ABOUT CONCERNS FOR SAFETY OF HER FAMILY AND STAFF. PT WAS ABLE TO BE REDIRECTED WITH CONVERSATION AND REASSURANCE IN THE MORNING. PT CONDITION WAS DISCUSSED DURING MORNING TEAM MEETING WITH PROVIDER. ANXIETY AND PARANOIA NOTABLY INCREASED IN THE AFTERNOON. SPEECH BECAME MORE DISORGANIZED AND SHE WAS NOT REDIRECTABLE. RN UPDATED PROVIDER AND ONE TIME PRN ORDERS GIVEN. PT MEDICATED PER EMAR, SHE WAS COOPERATIVE AND COMPLIANT WITH MEDICATIONS. PT CALMED AFTER RESTING ON HER BED. SHE HAD A VISIT WITH BOYFRIEND WHICH APPEARED TO GO WELL. ANXIETY DECREASED IN THE EVENING, SHE DISCUSSED STAYING UNTIL FRIDAY PREVIOUSLY PLANNED FOR MEDICATION ADJUSTMENTS.
[2025-01-14 20:46] VITALS: BP 160/113
[2025-01-14] MEDS ORDERED: CloZAPine 100 MG Tab PO SCH (21:00)
[2025-01-14] MEDS ORDERED: RisperiDONE 1 MG Tab PO SCH (21:00)
[2025-01-14] MEDS ORDERED: Atropine Sulfate 1% Opth Soln 2ML BTL MM SCH (21:00)
--- NOTE | 2025-01-15 04:35 | NUR ---
SHIFT SUMMARY PATIENT AWAKE SLIGHTLY ANXIOUS, VERBALIZED THAT SHE WAS THANKFUL TO SEE NEW SHIFT. COOPERATIVE WITH PO MEDICATIONS. PATIENT TO BED AFTER SNACK. HYPERTENSION CONTINUES. DENIES SI, HI, AVH. APPEARS TO BE SLEEPING T/O NIGHT RESP EVEN AND UNLABORED. CONTINUE TO MONITOR Q15MIN
[2025-01-15 08:06] VITALS: BP 146/88
--- NOTE | 2025-01-15 17:39 | NUR ---
SHIFT SUMMARY: PT ALERT, ORIENTED AND COOPERATIVE WITH CARE. PT STATES THAT SHE IS FEELING BETTER TODAY. SHE DENIED SI, HI AND AVH. PT WAS PRESENT ON THE UNIT, SPENT TIME IN THE DAY ROOM AND ON THE PATIO. PT CONVERSIVE WITH PEERS AND STAFF. HAD A VISIT WITH HER BOYFRIEND SHERRI WHICH APPEARED TO GO WELL. PT VERBALIZED THAT SHE IS LOOKING FORWARD TO DISCHARGING ON FRIDAY.
[2025-01-15] MEDS ORDERED: CloZAPine 100 MG Tab PO SCH (21:00)
[2025-01-15 21:53] VITALS: BP 171/128
--- NOTE | 2025-01-16 04:24 | NUR ---
SHIFT SUMMARY: PT A/O X4. PLEASANT AND COOPERTIVE. HAD SOME ANXIOUSNESS PRESENT AFTER HAVING SNACK AND WRAP UP MEETING. PT "I REALLY WAN'T TO TALK." LET PT KNOW AFTER GETTING A COUPLE OF THINGS DONE THAT SHE WOULD HAVE SOME TALK TIME. APPROACHED PT TO HAVE TALK TIME. PT INSISTED TO GO INTO THE VISITOR ROOM TO TALK. AFTER GETTING THERE SHE HAD A HESITANT START BUT THEN IT FELL INTO PLACE. PT SAID" YOU KNOW I CAME HERE BECAUSE I NEEDED HELP, NODDED YES TO PT. SHE THEN STATED THAT AUNT SHEA AND MIKE CHOI WERE OUT AT THE TRAILOR AND SHE REMEMBERS OPENNING THE DOOR AND APPLYING HER MONTH TO HIS PENIS. SHE ALMOST STARTED TO CRY, BUT SAID THAT SHERRI TOOK HER AWAY FROM IT AND AUNGina VALDIVIA. PT REVERTS BACK TO AUNT SHEA GIVING HER LAORAZAPAM AND THEN COUNTED THE POPPY DOW AND THERE WERE 23 OF THEM 'JUST LIKE ME". PT THEN SAID THAT AUNT SHEA AND MIKE CHOI WERE BAD PEOPLE. REASSURED PT THAT SHE IS IN A SAFE PLACE. SHE ASKED FOR HER MELATONIN AND THEN WENT TO BED. PT WAS UP AT 0040 AND COULD NOT SLEEP. SHE WATCHED TV FOR ABOUT 1 HOUR AND 15 MINUTES THEN WENT TO BED AND HAS SLEPT THE REST OF THE NIGHT. WILL CONTINUE TO MONITOR.
[2025-01-16] MEDS ORDERED: CLOZAPINE 25 MG PO SCH (08:00)
[2025-01-16 08:17] VITALS: BP 150/97
[2025-01-16 09:54] LABS: BASOPHILS ABSOLUTE AUTO 0.05 K/mm3 (0.00-0.23); BASOPHILS PERCENT AUTO 0 % (0-2); EOSINOPHILS ABSOLUTE AUTO 0.04 K/mm3 (0.00-0.68); EOSINOPHILS PERCENT AUTO 0 % (0-6); Hematocrit 43.9 % (33.0-51.0); IMMATURE GRAN ABSOLUTE AUTO 0.04 K/mm3 (0.00-0.10); IMMATURE GRAN PERCENT AUTO 0 % (0-1); LYMPHOCYTES ABSOLUTE AUTO 2.21 K/mm3 (0.84-5.20); LYMPHOCYTES PERCENT AUTO 19 % (21-46); MONOCYTES ABSOLUTE AUTO 0.72 K/mm3 (0.16-1.47); MONOCYTES PERCENT AUTO 6 % (4-13); Mean Corpuscular HGB 30.4 pg (26.0-34.0); Mean Corpuscular HGB Conc 34.2 g/dL (31.5-36.5); Mean Corpuscular Volume 89 fL (80-100); Mean Platelet Volume 9.7 fL (9.1-12.4); NEUTROPHILS ABSOLUTE AUTO 8.37 K/mm3 (1.96-9.15); NEUTROPHILS PERCENT AUTO 73 % (41-73); Platelet Count 368 K/mm3 (150-400); RDW Coefficient Variation 13.3 % (11.7-14.2); RDW Standard Deviation 43.1 fL (35.1-46.3); Red Blood Cell Count 4.94 M/mm3 (3.80-5.20); White Blood Cell Count 11.43 K/mm3 (4.00-11.30)
[2025-01-16] MEDS ORDERED: ATROPINE SULFATE2 M1 SL (11:31)
[2025-01-16] MEDS ORDERED: MIRALAX17 GM PO (11:32)
[2025-01-16] MEDS ORDERED: CLOZAPINE50 M1 PO (11:32)
[2025-01-16] MEDS ORDERED: DAILY-VITE1 EAC1 PO (11:32)
[2025-01-16] MEDS ORDERED: RISP1 PO (11:33)
--- NOTE | 2025-01-16 16:43 | NUR ---
SHIFT SUMMARY: PT ALERT, ORIENTED AND COOPERATIVE WITH CARE. DENIES SI, HI AND AVH. PT STATES THAT SHE IS LOOKING FORWARD TO GOING HOME [place]. DC MED REC FROM PROVIDER SENT TO [facility] AT PT REQUEST. [facility] CALLED AND WERE UNABLE TO FILL ALL THE MEDICATIONS. PT NOTIFIED, REQUESTED THAT THEY BE SENT TO [facility] AND RX SENT VIA FAX. PT SHOWERED, ATTENEDED GROUPS AND WAS PRESENT ON THE UNIT. SPENT TIME WATCHING TV, READING AND PUTTING TOGETHER A PUZZLE.
[2025-01-16 21:10] LABS: CLOZAPINE, S/P, QUANT 144 ng/mL; CLOZAPINE-N-OXIDE, S/P, QUANT <100 ng/mL; NORCLOZAPINE, S/P, QUANT <100 ng/mL; TOTAL CLOZAPINE AND METAB 144 ng/mL (<=1500)
--- NOTE | 2025-01-16 22:00 | NUR ---
PT A/O X4. IN GREAT SPIRITS. IS READY TO GO HOME TOMORROW. PT TELLS THIS RN ON WHAT SHE NEEDS TO DO ONCE SHE GETS DISCHARGED. HER LIST WAS; TO GO GET HER MEDICATIONS FROM HER PHARMACY, TO TAKE THEM LIKE SHE WAS DOING FOR THIS ADMIT. IF NEEDED TO GO TO THE ED FOR HELP, AND TO SEE HER FAMILY. PT PARTICIPATED IN GROUP AND HD A SNACK THEN FELL ASLEEP IN BED. SHE ROLLED ONTO HER GLASSES AND THEY BROKE. PT STATES SHE WILL GET A NEW PAIR WHEN SHE GETS OUT OF HERE.
[2025-01-16 22:06] VITALS: BP 154/106
[2025-01-17 08:07] VITALS: BP 153/114
[2025-01-17 09:06] LABS: BASOPHILS ABSOLUTE AUTO 0.02 K/mm3 (0.00-0.23); BASOPHILS PERCENT AUTO 0 % (0-2); EOSINOPHILS ABSOLUTE AUTO 0.02 K/mm3 (0.00-0.68); EOSINOPHILS PERCENT AUTO 0 % (0-6); Hemoglobin 15.4 g/dL (11.5-16.0); IMMATURE GRAN ABSOLUTE AUTO 0.04 K/mm3 (0.00-0.10); IMMATURE GRAN PERCENT AUTO 0 % (0-1); LYMPHOCYTES ABSOLUTE AUTO 1.63 K/mm3 (0.84-5.20); LYMPHOCYTES PERCENT AUTO 14 % (21-46); MONOCYTES ABSOLUTE AUTO 0.48 K/mm3 (0.16-1.47); MONOCYTES PERCENT AUTO 4 % (4-13); Mean Corpuscular HGB 30.4 pg (26.0-34.0); Mean Corpuscular HGB Conc 33.5 g/dL (31.5-36.5); Mean Corpuscular Volume 91 fL (80-100); Mean Platelet Volume 9.6 fL (9.1-12.4); NEUTROPHILS ABSOLUTE AUTO 9.84 K/mm3 (1.96-9.15); NEUTROPHILS PERCENT AUTO 82 % (41-73); Platelet Count 370 K/mm3 (150-400); RDW Coefficient Variation 13.4 % (11.7-14.2); Red Blood Cell Count 5.07 M/mm3 (3.80-5.20); White Blood Cell Count 12.03 K/mm3 (4.00-11.30)
--- NOTE | 2025-01-17 13:15 | NUR ---
DC INSTRUCTIONS REVIEWED WITH PATIENT AT 1300. SHE VERBALIZED UNDERSTANDING OF ALL. WRITTEN COPIES GIVEN TO PATIENT OF ALL INFORMATION. REVIEWED PERTINENT INFORMATION WITH SHERRI, PATIENT'S SO, WITH HER PERMISSION. HE ALSO VERBALIZED UNDERSTANDING. PLAN IN PLACE FOR FOLLOW UP TOMORROW WITH [facility]. PT BELONGINGS RETURNED. FORM SIGNED. SHE EXPRESSED THAT SHE HAD MORE PIERCINGS WHEN SHE CAME INTO THE ER AND THINKS SOME MAY HAVE BEEN LEFT THERE. CALLED ER AND THEY COULD NOT FIND ANYTHING. GAVE HER PATIENT ADVOCATE'S NUMBER. ALL BELONGINGS THAT CAME INTO [facility] WITH PATIENT WERE RETURNED AND SIGNED FOR. PT EXPRESSED SOME ANXIETY WITH GOING HOME RELATED TO FEAR OF SYMPTOMS RETURNING, NON STRUCTURED ENVIRONMENT, AND FOLLOW UP. REASSURANCE GIVEN AND REVIEWED PLAN WITH PATIENT FOR ALL CONCERNS. SHE STATES "I JUST NEED TO KEEP REMINDING MYSELF." STATES NO DESIRE FOR SELF HARM OR HARMING OTHERS. DC HOME WITH IMER POLANCO, TO DRIVE HER. STATES THEY WILL GO TO PHARMACY TO SERGE[facility] AT [facility] IMMEDIATELY.
== END 2025-01-17 13:13 | disposition home or self-care (01) | DRG 885 ==
LOC: BHU 15:19
PROVIDERS: Student in an Organized Health Care Education/Training Program; ADMIT Psychiatry & Neurology Psychiatry
DX: F20.0 Paranoid schizophrenia (principal); J45.909 Unspecified asthma, uncomplicated; F41.9 Anxiety disorder, unspecified; R45.1 Restlessness and agitation; Z81.8 Family history of other mental and behavioral disorders; Z88.0 Allergy status to penicillin; Z98.890 Other specified postprocedural states; Z79.899 Other long term (current) drug therapy; Z79.1 Long term (current) use of non-steroidal anti-inflammatories (NSAID); Z91.198 Patient's noncompliance with other medical treatment and regimen for other reason
CPT/HCPCS: 36415; 80061; 83036; 84484; 85025; 93005; 93010; A9270; J1200; J1630; J2060; J3486

== ENCOUNTER 2025-08-31 04:44 | Emergency (ER) | payer BC ==
[~2025-08-31] VITALS: Ht 162.6 cm; Wt 95.2 kg
[~2025-08-31 04:44] MED LIST changes: +ATROPINE SULFATE2 M1 SL; +CLOZAPINE50 M1 PO; +DAILY-VITE1 EAC1 PO; +MIRALAX17 GM PO; +RISP1 PO
[2025-08-31 04:55] VITALS: BP 162/108
== END 2025-08-31 05:47 | disposition home or self-care (01) ==
LOC: ER 04:44
DX: S93.401A Sprain of unspecified ligament of right ankle, initial encounter (principal); J45.909 Unspecified asthma, uncomplicated; W10.1XXA Fall (on)(from) sidewalk curb, initial encounter
CPT/HCPCS: 73610; 99283-25; A9270